=== PATIENT | male | born 1970 | race American Indian/Alaskan Native ===

== ENCOUNTER 2019-12-10 15:35 | Emergency (ER) | payer SELFPAY ==
[2019-12-10 16:15] VITALS: BP 146/84
--- NOTE | 2019-12-10 16:16 | Emergency Department Report ---
Chief Complaint: Urogenital-Male Stated Complaint: STD Time Seen by Provider: 12/10/19 16:14 - HPI History of Present Illness: 49 yo male presents with concern for STD. Dysuria. Referred to outpatient clinics. MSE completed MSE screening note: Focused history and physical exam performed. Due to findings the following was ordered: ED Disposition for MSE Clinical Impression: Encounter for medical screening examination Disposition: MED SCREENING EXAM-LEFT Condition: Stable Referrals: VIOLETTA RUVALCABA MD [Staff Physician] - 3-5 Days [facility] [Outside] - 3-5 Days
== END 2019-12-10 17:19 | disposition left against medical advice (07) ==
LOC: ED 15:35
DX: R30.0 Dysuria (principal)
CPT/HCPCS: 99281